=== PATIENT | male | born 1955 | race Caucasian/White ===

== ENCOUNTER 2018-05-12 15:23 | Observation (INO) ==
[2018-05-12] MEDS ORDERED: IOPAMIDOL 100 ML BOTTLE IV ONE (15:24)
[2018-05-12] MEDS ORDERED: HYDROmorphone 2 MG/ML VIAL IV ONE ×2 (15:49→17:52)
[2018-05-12] MEDS ORDERED: ONDANSETRON 4 MG/2 ML VIAL IV ONE (15:49)
--- NOTE | 2018-05-12 15:57 | Emergency Department Note ---
Abdominal Pain HPI - General Source: patient Mode of arrival: ambulatory Limitations: no limitations <Matty Marvin - Last Filed: 05/12/18 15:52> <Shirin Hercules - Last Filed: 05/12/18 18:56> - General Chief Complaint: Abdominal Pain Stated Complaint: right lower abd pain Time Seen by Provider: 05/12/18 15:33 - History of Present Illness HPI Narrative: Pt is a 62 year old male presenting today post right sided lithotripsy with Dr. Montero at 0700 today. Upon returning home he started to experience sever right inguinal pain and increased sensation to void. He has been able to urinate selvin since the procedure and he noted blood both times. He also noted that he did not feel like he completely emptied his bladder both times. He wears a fentanyl patch and took his hydrocodone today, but is still in a lot of discomfort. The pain does not radiate into his flank area. He had this procedure done on the contralateral side a few years ago and this pain is nothing close to what he experienced back then. He denies nausea, vomiting, fever, diarrhea. He has been able to eat today. He also notes consuming copious amounts of fluids as directed after the procedure. (Matty Marvin) - Related Data Home Medications Medication Instructions Recorded Confirmed amlodipine 5 mg tablet 5 mg PO QDAY tab 01/24/15 05/08/18 aspirin 81 mg tablet,delayed 81 mg PO QDAY tab 01/24/15 05/08/18 release clopidogrel 75 mg tablet 75 mg PO ONCE tab 01/24/15 05/08/18 fentanyl 75 mcg/hr transdermal 1 patch TRANSDERMA Q48H patch 01/24/15 05/08/18 patch metoprolol succinate ER 25 mg 25 mg PO QDAY tab 01/24/15 05/08/18 tablet,extended release 24 hr omega-3 fatty acids 300 mg capsule 600 mg PO ONCE cap 01/24/15 05/08/18 pantoprazole 20 mg tablet,delayed 20 mg PO QDAY tab 01/24/15 05/08/18 release atorvastatin 10 mg tablet 10 mg PO QDAY tab 01/25/15 05/08/18 levothyroxine 150 mcg capsule 150 mcg PO ONCE cap 01/25/15 05/12/18 oxycodone-acetaminophen 10 mg-325 1 tab PO Q4H PRN tab 01/25/15 05/12/18 mg tablet ranitidine 150 mg tablet 150 mg PO QHS tab 01/25/15 05/08/18 Previous Rx's Medication Instructions Recorded tamsulosin 0.4 mg capsule 0.4 mg PO QDAY #90 cap 03/17/17 Allergies Allergy/AdvReac Type Severity Reaction Status Date / Time No Known Drug Allergies Allergy Verified 05/08/18 09:33 Review of Systems All systems ED: reviewed and negative except as stated. <Matty Marvin - Last Filed: 05/12/18 15:52> Abdominal Pain PMH - Social History Smoking status: Former smoker <Matty Marvin - Last Filed: 05/12/18 15:52> Physical Exam Limitations: no limitations General appearance: alert, anxious, in distress Head: atraumatic, normocephalic Eye: Present: normal appearance, PERRL, EOMI Chest: Present: normal inspection, symmetric chest wall rise Respiratory: Present: normal lung sounds bilaterally Cardiovascular: Present: regular rate, normal rhythm Abdominal: Present: soft. Absent: distention, tenderness Abdominal tenderness: Present: severe (right inguinal pain to palpation) Back: Absent: CVA tenderness (R), CVA tenderness (L) Neurological: Present: alert, oriented X3 Psychiatric: Present: normal affect, normal mood, anxious Skin: Present: warm, dry, intact, normal color <Matty Marvin - Last Filed: 05/12/18 15:52> Course <Matty Marvin - Last Filed: 05/12/18 15:52> <Shirin Hercules - Last Filed: 05/12/18 18:56> Course Narrative: Agree with HPI and PE done by PA Student Matty Marvin @3046 I did speak with Dr. Montero regarding CT results. Dr. Montero states he can go ahead and go home and he will check with him in the morning. Adequate pain control. However we cannot get this patient's pain under control despite multiple doses of IV pain medication. At [address]55 I did speak with Dr[address] Montero again regarding this patient. We are having a hard time getting his pain under control. We are going to go ahead and admit him to observation for pain control for Dr. Montero. I will place holding orders. (Shirin Hercules) Vital Signs Temperature 98.0 F 05/12/18 15:24 Pulse Rate 70 05/12/18 15:24 Respiratory Rate 18 05/12/18 15:24 Blood Pressure 195/89 05/12/18 15:24 Pulse Oximetry (%) 98 05/12/18 15:24 Temperature 98.0 F 05/12/18 15:24 Pulse Rate 53 L 05/12/18 18:07 Respiratory Rate 18 05/12/18 15:24 Blood Pressure 162/79 05/12/18 17:47 Pulse Oximetry (%) 91 05/12/18 18:07 Abdominal Pain - Lab Data Lab results reviewed: Yes I reviewed the patient's lab results. Result diagrams: 05/12/18 16:01 05/12/18 16:01 - Radiology Data Radiology results reviewed: Yes I reviewed the patient's radiology results. <Shirin Hercules - Last Filed: 05/12/18 18:56> - Lab Data Lab Results 05/12/18 05/12/18 Range/Units 16:01 16:01 WBC 7.0 (4.5-11.0) K/mcL RBC 5.08 (4.50-5.90) M/mcL Hgb 14.8 (13.5-16.5) g/dL Hct 44.8 (41.0-55.0) % POC Hct 49.0 (41.0-55.0) % MCV 88.2 (80.0-100.0) fL MCH 29.2 (26.0-34.0) pg MCHC 33.1 (31.0-36.0) g/dL RDW 15.2 H (11.5-14.5) % Plt Count 236 (140-440) K/mcL MPV 9.1 (7.4-10.4) fL Gran % 85.3 H (38.0-78.0) % Lymph % (Auto) 14.0 L (15.5-49.0) % [place] % (Auto) 0.6 L (1.0-12.0) % Eos % (Auto) 0 (0.0-7.0) % Baso % (Auto) 0.1 (0.0-2.0) % Gran # 6.0 (1.8-8.0) K/mcL Lymph # (Auto) 1.0 L (1.5-4.8) K/mcL [place] # (Auto) 0 L (0.1-0.9) K/mcL Eos # (Auto) 0 (0.0-0.7) K/mcL Baso # (Auto) 0 (0.0-0.3) K/mcL POC Sodium 138 (133-145) mmol/L Sodium 132 L (133-145) mmol/L POC Potassium 4.2 (3.3-5.1) mmol/L Potassium 4.4 (3.3-5.1) mmol/L POC Chloride 101 (96-108) mmol/L Chloride 97 (96-108) mmol/L Carbon Dioxide 21 L (22-30) mmol/L POC Total CO2 21 L (22-30) mmol/L Anion Gap 14.0 (8-16) POC BUN 12 (8-23) mg/dl BUN 12 (8-23) mg/dl Creatinine 1.0 (0.7-1.2) mg/dl POC Creatinine 0.9 (0.7-1.2) mg/dl GFR Calculation 80 Glucose 184 H (70-105) mg/dL POC Glucose 183 H (70-105) mg/dL Calcium 8.7 (8.6-10.4) mg/dl POC WB Ioniz Calcium 1.06 L (1.16-1.32) mmol/L Total Bilirubin 0.3 (0.0-1.0) mg/dL AST 19 (0-37) U/l ALT 19 (0-40) U/l Alkaline Phosphatase 104 (39-117) U/L Total Protein 7.4 (5.9-8.4) gm/dL Albumin 4.1 (3.2-5.2) gm/dL Globulin 3.3 (2.2-3.7) gm/dL Albumin/Globulin Ratio 1.2 (1.0-2.3) Disposition <Matty Marvin - Last Filed: 05/12/18 15:52> Pt seen by [facility]OURNEY[facility]PENTER/PA only: No Time of Disposition: 18:56 <Shirin Hercules - Last Filed: 05/12/18 18:56> Clinical Impression: Flank pain, acute, Kidney stones, H/O lithotripsy, Intractable pain Disposition: Xfer As Outpt/Obs ([facility]) Condition: Fair Referrals: Lizzy Vogt MD [Primary Care Provider] - Korey Montero MD [Physician] -
[2018-05-12] MEDS: 0.9 % SODIUM CHLORIDE 1,000 ML IV SCH ×5 (16:20→23:29)
[2018-05-12 16:34] LABS: Basophils # (Auto) 0 K/mcL (0.0-0.3); Basophils % (Auto) 0.1 % (0.0-2.0); Eosinophils # (Auto) 0 K/mcL (0.0-0.7); Eosinophils % (Auto) 0 % (0.0-7.0); Granulocytes % (Auto) 85.3 % (38.0-78.0); Mean Cell Volume 88.2 fL (80.0-100.0); Mean Corpuscular HGB Conc 33.1 g/dL (31.0-36.0); Mean Corpuscular Hemoglobin 29.2 pg (26.0-34.0); Monocytes # (Auto) 0 K/mcL (0.1-0.9); Monocytes % (Auto) 0.6 % (1.0-12.0); Platelet Count 236 K/mcL (140-440); RBC 5.08 M/mcL (4.50-5.90); Red Cell Distribution Width 15.2 % (11.5-14.5)
[2018-05-12 16:48] LABS: ALT/SGPT 19 U/l (0-40); Albumin 4.1 gm/dL (3.2-5.2); Albumin/Globulin Ratio 1.2 (1.0-2.3); Alkaline Phosphatase 104 U/L (39-117); Blood Urea Nitrogen 12 mg/dl (8-23)
[2018-05-12] MEDS ORDERED: HYDROmorphone 2 MG/ML VIAL IV SCH (17:15)
--- NOTE | 2018-05-12 17:17 | Cat Scan Report ---
CLINICAL INFORMATION: Right flank and inguinal pain following lithotripsy of a right-sided kidney stone, performed today. COMPARISON: 07/08/16 TECHNIQUE: Following injection of intravenous contrast the patient was scanned during the portal venous phase from the diaphragm through the symphysis pubis. Delayed excretory phase images were also obtained. Sagittal and coronal reformats were created.. The radiation exposure was limited using dose reduction technology. FINDINGS: There are several bands of discoid atelectasis in both lung bases. These have developed since the prior study. The liver is normal in size. There is subtle fatty infiltration. No mass is present. The spleen is normal in size and contains a 2 mm calcified granuloma. The gallbladder pancreas and adrenals are normal. There is stranding of the perinephric fat surrounding the right kidney. Mild hydronephrosis is present. There are several stone fragments within the calyces. The largest is located posteriorly in the lower third and measures 5 x 8 mm. Small amount of clot in the renal pelvis and small stone fragments. At the ureteropelvic junction there is a 3 x 6 mm calculus. The right ureter is nondilated. However, at the tip of the right ureterovesical junction there is a 5 x 8 mm stone fragment protruding into the lumen of the bladder. The left kidney and ureter are normal without evidence of a stone or obstruction. There is an incidental 2 cm cyst located laterally in the middle one third. No intraperitoneal hemorrhage or ascites are present. The delayed images showed diminished urine output on the right kidney compared to the left. The renal arteries and veins appear normal. IMPRESSION: Stone fragment at the right ureteropelvic junction causing mild hydronephrosis. Stone fragment at the right ureterovesical junction which is not causing dilatation of the ureter Moderate perinephric stranding around the right kidney which may be secondary to the lithotripsy or obstruction caused by the stone at the ureteral pelvic junction Shirin Hercules was called with results Interpreted and Authenticated by: Misha Ruffin 05/12/18
[2018-05-12] MEDS ORDERED: oxyCODONE/APAP 5/325MG TABLET PO PRN (18:57)
[2018-05-12] MEDS ORDERED: PROMETHAZINE 25 MG/ML VIAL IM PRN (18:57)
[2018-05-12] MEDS: HYDROmorphone 2 MG/ML VIAL IV PRN ×2 (18:57→19:54)
[2018-05-12] MEDS ORDERED: ONDANSETRON 4 MG/2 ML VIAL IV PRN (19:00)
[2018-05-12] MEDS ORDERED: HYDROmorphone PCA 30 MG/30 ML PCA.VIAL IV PRN (19:01)
[2018-05-12] MEDS ORDERED: fentaNYL 75 MCG PATCH TOPICAL SCH (19:15)
[2018-05-12] MEDS ORDERED: TAMSULOSIN 0.4 MG CAPSULE PO SCH (21:00)
[2018-05-13] MEDS: 0.9 % SODIUM CHLORIDE 1,000 ML IV SCH (03:51)
[2018-05-13] MEDS ORDERED: LEVOTHYROXINE SODIUM 150 MCG PO SCH (07:15)
[2018-05-13] MEDS ORDERED: LEVOTHYROXINE 150 MCG TABLET PO SCH (07:30)
[2018-05-13] MEDS ORDERED: PANTOPRAZOLE 40 MG TABLET PO SCH (07:30)
--- NOTE | 2018-05-13 07:35 | History and Physical Report ---
DATE OF ADMISSION: 05/12/2018 HISTORY OF PRESENT ILLNESS: This is a 62-year-old gentleman who underwent lithotripsy on 04/12/2018. He did have a 1 cm stone on the right side. The operation went well. Postoperatively, he did have some pain which was controlled with medication He is on fentanyl for back pain and hydrocodone, and as the day went on this did not control the pain. He was seen in the emergency room later that day and a CT scan was obtained which showed a 3 x 5 cm fragment at the UPJ. His pain could be controlled and he was admitted for observation. He presents now for evaluation. For the rest of his history, please see the dictation from 05/04/2018 and there have been no changes except for the lithotripsy. PHYSICAL EXAMINATION: GENERAL: This is a pleasant gentleman in slight distress. VITAL SIGNS: As listed per nurse's notes. HEENT: Atraumatic, normocephalic. Extraocular movements are intact. Pupils equal, reactive to light and accommodation. No thyromegaly is noted. No mucosal lesions. LUNGS: Clear to auscultation. HEART: Regular rate and rhythm. ABDOMEN: Positive right flank pain which does extend down the groin. GENITOURINARY: Normal male phallus. Testicles are down in normal position. No hernias. No masses are felt. EXTREMITIES: Without clubbing, cyanosis or edema. NEUROLOGIC: Cranial nerves II-XII intact. Grossly, motor is intact. IMPRESSION: Patient with a distal right ureteral stone which is causing a blockage. I have explained this to him. I do not feel at this point no intervention is needed-we will see if he can pass this. We will keep him on a [facility] [employer] and in observation status. I have talked to him about this and he agrees. We will see how he does. BRANDT:una Job ID: [id number] Doc ID: [id number] Korey GOMEZ
[2018-05-13] MEDS ORDERED: amLODIPine 5 MG TABLET PO SCH ×2 (09:00)
[2018-05-13] MEDS ORDERED: METOPROLOL SUCCINATE 25 MG TAB.XL.24H PO SCH ×2 (09:00)
[2018-05-13] MEDS ORDERED: ATORVASTATIN 20 MG TABLET PO SCH ×2 (09:00)
[2018-05-13] MEDS ORDERED: ASPIRIN 81 MG TAB.CHEW PO SCH (09:00)
[2018-05-13] MEDS ORDERED: FISH OIL 1,000 MG CAPSULE PO SCH (09:00)
[2018-05-13] MEDS ORDERED: fentaNYL 75 MCG PATCH TOPICAL SCH (10:00)
--- NOTE | 2018-05-13 12:20 | General Surgery Progress Note ---
Subjective Patient reports: feels better, pain is less Narrative: Note initiated : 05/13/18 at 12:17 pm Service Date, if different from initiated Date: [] Patient: Rd Guerrero 62 y/o M admitted on 05/12/18 for right lower abd pain. Chief Complaint: patient admitted last night for right ureteral pain after ESWL. Pain is controlled with meds and is ready for d/c Objective Temp Pulse Resp BP Pulse Ox 97.9 F 48 L 20 125/55 96 05/13/18 11:50 05/13/18 11:50 05/13/18 11:50 05/13/18 11:50 05/13/18 11:50 - Additional Data Intake & Output - Last 24 hours: Intake & Output 05/11/18 05/12/18 05/13/18 05/14/18 05:59 05:59 05:59 05:59 Intake Total 3810 / 3810 240 / 240 Output Total 825 / 825 300 / 300 Balance 2985 / 2985 -60 / -60 Weight 240 lb - Labs 05/12/18 16:01 05/12/18 16:01 Diabetes panel 05/12/18 Range/Units 16:01 Sodium 132 L (133-145) mmol/L Potassium 4.4 (3.3-5.1) mmol/L Chloride 97 (96-108) mmol/L Carbon Dioxide 21 L (22-30) mmol/L BUN 12 (8-23) mg/dl Creatinine 1.0 (0.7-1.2) mg/dl Glucose 184 H (70-105) mg/dL Calcium 8.7 (8.6-10.4) mg/dl AST 19 (0-37) U/l ALT 19 (0-40) U/l Alkaline Phosphatase 104 (39-117) U/L Total Protein 7.4 (5.9-8.4) gm/dL Albumin 4.1 (3.2-5.2) gm/dL Calcium panel 05/12/18 Range/Units 16:01 Calcium 8.7 (8.6-10.4) mg/dl Albumin 4.1 (3.2-5.2) gm/dL Pituitary panel 05/12/18 Range/Units 16:01 Sodium 132 L (133-145) mmol/L Potassium 4.4 (3.3-5.1) mmol/L Chloride 97 (96-108) mmol/L Carbon Dioxide 21 L (22-30) mmol/L BUN 12 (8-23) mg/dl Creatinine 1.0 (0.7-1.2) mg/dl Glucose 184 H (70-105) mg/dL Calcium 8.7 (8.6-10.4) mg/dl Adrenal panel 05/12/18 Range/Units 16:01 Sodium 132 L (133-145) mmol/L Potassium 4.4 (3.3-5.1) mmol/L Chloride 97 (96-108) mmol/L Carbon Dioxide 21 L (22-30) mmol/L BUN 12 (8-23) mg/dl Creatinine 1.0 (0.7-1.2) mg/dl Glucose 184 H (70-105) mg/dL Calcium 8.7 (8.6-10.4) mg/dl Total Bilirubin 0.3 (0.0-1.0) mg/dL AST 19 (0-37) U/l ALT 19 (0-40) U/l Alkaline Phosphatase 104 (39-117) U/L Total Protein 7.4 (5.9-8.4) gm/dL Albumin 4.1 (3.2-5.2) gm/dL Assessment and Plan - Time Spent With Patient Total time spent is greater than 50% in coordination of care (as documented) at patient's floor/unit and/or counseling patient:
[2018-05-13] MEDS ORDERED: FAMOTIDINE 20 MG TABLET PO SCH (21:00)
[2018-05-13] MEDS ORDERED: TAMSULOSIN 0.4 MG CAPSULE PO SCH (21:00)
[2018-05-14] MEDS ORDERED: PANTOPRAZOLE 40 MG TABLET PO SCH (07:30)
[2018-05-14] MEDS ORDERED: LEVOTHYROXINE 150 MCG TABLET PO SCH (07:30)
== END 2018-05-13 12:40 | disposition home or self-care (01) ==
LOC: ED 15:23 → MEDSUR 15:23
CPT/HCPCS: 80047; 85014; J1170; J2405; J7030; Q9967